=== PATIENT | female | born 1955 | race Caucasian/White ===

== ENCOUNTER → 2019-02-16 | Outpatient (CLI) | payer MEDICARE, OTHER ==
[~2019-02-16] MED LIST: CATHETER FLUSH 10 ML SYR IV PRN; GADOBUTROL 7.5 MMOL/7.5 ML (GADAVIST) VIAL IV ONE; HOLD METFORMIN - RECEIVED CONTRAST 20 ML VIAL IV SCH; IOHEXOL 350 MG/ML 100 ML (OMNIPAQUE 350) VIAL IV ONE; NS 100 ML (IVPB) BAG IV ONE
--- NOTE | 2019-02-16 12:17 | Diagnostic Imaging Report ---
PROCEDURE: CT chest with contrast only. TECHNIQUE: Multiple contiguous axial images were obtained through the chest after administration of intravenous contrast. Auto Exposure Controls were utilized during the CT exam to meet ALARA standards for radiation dose reduction. INDICATION: Breast cancer. FINDINGS: No comparison available. There are postsurgical changes of left mastectomy. No axillary, supraclavicular or mediastinal lymphadenopathy. Heart size is normal. No pericardial effusion. Aorta is normal in caliber. No central pulmonary embolism. Limited views of the upper abdomen reveal renal cysts and scarring in the right kidney. There is anterior fibrosis in the left lung likely related to prior chest wall radiation. There is mild atelectasis posteriorly in the right lung. There are multifocal ill-defined nodules involving the right upper lobe and middle lobe likely reflecting an infectious process. No edema. No pleural effusion. No suspicious osseous lesions. IMPRESSION: 1. Multifocal ill-defined nodules in the right upper and middle lobes likely reflecting an infectious process. Followup to resolution is recommended. Dictated by: Dictated on workstation # [id number]
--- NOTE | 2019-02-16 14:03 | Diagnostic Imaging Report ---
PROCEDURE: MR imaging of the brain with and without contrast. TECHNIQUE: Multiplanar, multisequence MR imaging of the brain was performed with and without contrast. INDICATION: History of breast cancer in 1986. Patient complaining of dizziness. COMPARISON: No prior studies are available for comparison. FINDINGS: Ventricles and sulci are within normal limits. There is some moderate periventricular and subcortical white matter signal abnormality noted consistent with chronic microvascular ischemia. No diffusion restriction is identified to suggest acute ischemia. Normal expected flow-voids within the carotid siphons are seen. No abnormal enhancement following contrast administration is identified. Corpus callosum is unremarkable. The sella and parasellar structures are unremarkable. Internal auditory canals are unremarkable. No CP angle mass is seen. There is no hemorrhage detected. IMPRESSION: Changes of chronic microvascular ischemia. No findings to suggest intracranial metastatic disease are detected. No acute feature is seen. Dictated by: Dictated on workstation # [id number]
== END ==
LOC: RAD 11:24
PROVIDERS: ATTEND Internal Medicine Hematology & Oncology
DX: I67.82 Cerebral ischemia (principal); C83.09 Small cell B-cell lymphoma, extranodal and solid organ sites; D50.9 Iron deficiency anemia, unspecified; D73.1 Hypersplenism; Z85.3 Personal history of malignant neoplasm of breast
CPT/HCPCS: 70553; 71260

== ENCOUNTER → 2019-05-10 | Outpatient (CLI) | payer MEDICARE, OTHER ==
[2019-05-10 09:45] LABS: BASOPHILS % (AUTO) 0 % (0-10); EOSINOPHILS % (AUTO) 0 % (0-10); HEMATOCRIT 43 % (35-52); HEMOGLOBIN 15.1 G/DL (11.5-16.0); LYMPHOCYTES # (AUTO) 1.1 X 10^3 (1.0-4.0); LYMPHOCYTES % (AUTO) 16 % (12-44); MEAN CORPUSCULAR HEMOGLOBIN 33 PG (25-34); MEAN CORPUSCULAR HGB CONC 36 G/DL (32-36); MEAN CORPUSCULAR VOLUME 93 FL (80-99); MONOCYTES # (AUTO) 0.4 X 10^3 (0.0-1.0); MONOCYTES % (AUTO) 6 % (0-12); NEUTROPHILS # (AUTO) 5.2 X 10^3 (1.8-7.8); NEUTROPHILS % (AUTO) 77 % (42-75); PLATELET COUNT 167 10^3/uL (130-400); RED CELL DISTRIBUTION WIDTH 15.2 % (10.0-14.5); WHITE BLOOD COUNT 6.7 10^3/uL (4.3-11.0)
[2019-05-10 10:14] LABS: ALANINE AMINOTRANSFERASE 24 U/L (0-55); ALBUMIN 4.6 GM/DL (3.2-4.5); ALKALINE PHOSPHATASE 168 U/L (40-136); BILIRUBIN,TOTAL 0.6 MG/DL (0.1-1.0); BUN/CREATININE RATIO 12; CALCIUM 9.8 MG/DL (8.5-10.1); CARBON DIOXIDE 23 MMOL/L (21-32); CHLORIDE 104 MMOL/L (98-107); CREATININE SERUM 0.76 MG/DL (0.60-1.30); GFR ESTIMATED > 60; GLUCOSE 103 MG/DL (70-105); POTASSIUM 4.2 MMOL/L (3.6-5.0); SODIUM 138 MMOL/L (135-145); TOTAL PROTEIN 7.1 GM/DL (6.4-8.2)
[2019-05-10 10:33] LABS: FREE T4 (FREE THYROXINE) 1.41 NG/DL (0.70-1.48)
--- NOTE | 2019-05-10 11:59 | Diagnostic Imaging Report ---
EXAMINATION: CT Chest with intravenous contrast. TECHNIQUE: Multiple contiguous axial images were obtained through the chest after the uneventful administration of intravenous contrast. All CT scans use one or more of the following dose optimizing techniques: automated exposure control, MA and/or KvP adjustment based on a patient size and exam type, or iterative reconstruction. INDICATION: SMALL CELL B CELL LYMPHOMA COMPARISON: 11/16/2018 FINDINGS: The lungs are clear without edema or pneumonia. No pleural effusion or pneumothorax. Previously seen ill-defined inflammatory nodules in the right upper and middle lobe have resolved. Some scarring is seen in the lung apices with some reticulations anteriorly as well. This is particularly seen on the left and is likely related to prior breast radiation. Mild atelectasis is seen in the right base. Heart size is normal. No pericardial effusion. Aorta is normal in caliber. There is no axillary or supraclavicular lymphadenopathy. There is no mediastinal lymphadenopathy. There is been cholecystectomy. Limited views of the upper abdomen are unremarkable. There are no suspicious osseus lesions. IMPRESSION: 1. Resolution of previously seen inflammatory appearing nodules in the upper middle lobe. Dictated by: Dictated on workstation # [id number]
== END ==
LOC: RAD FS 09:22
PROVIDERS: ATTEND Internal Medicine Hematology & Oncology
DX: C83.00 Small cell B-cell lymphoma, unspecified site (principal)
CPT/HCPCS: 36415; 71260; 80053; 82728; 83540; 83615; 84439; 85025; 86141

== ENCOUNTER → 2022-11-06 | Outpatient (CLI) | payer MEDICARE, OTHER ==
[~2022-11-06] MED LIST changes: -CATHETER FLUSH 10 ML SYR IV PRN; +CATHETER FLUSH 10 ML SYR IVP PRN; -GADOBUTROL 7.5 MMOL/7.5 ML (GADAVIST) VIAL IV ONE; -HOLD METFORMIN - RECEIVED CONTRAST 20 ML VIAL IV SCH; -IOHEXOL 350 MG/ML 100 ML (OMNIPAQUE 350) VIAL IV ONE; -NS 100 ML (IVPB) BAG IV ONE
--- NOTE | 2022-11-07 09:06 | Diagnostic Imaging Report ---
INDICATION: Lymphoma, subsequent staging. Serum blood glucose level time injection is 131 mg/dL. Patient was administered 9.3 mCi F-18 FDG intravenously in the right hand and PET imaging was performed from the top of skull to mid thighs. Noncontrast CT was also performed for attenuation correction and anatomic correlation. No prior PET studies are available for comparison. Comparison is made with prior CT study from 06/17/2022. There is symmetric activity throughout the brain. Extensive hypermetabolic lymphadenopathy is identified. There is a hypermetabolic lymphadenopathy within the neck, particularly on the left side as well as bilateral supraclavicular regions and the right axilla. SUV max of left supraclavicular regions approximately 20. The bulky hypermetabolic mass in the anterior mediastinum consistent with adenopathy is noted. There is also subcarinal hypermetabolic lymphadenopathy. There are several pulmonary parenchymal areas of hypermetabolism in the left upper lobe and the left lower lobe. There is upper abdominal lymphadenopathy in the gastrohepatic region. Spleen contains numerous foci of hypermetabolism. There is also bilateral adrenal masses which are hypermetabolic. Right adrenal mass demonstrates SUV max of 21. [place] hepatis and retroperitoneal hypermetabolic lymphadenopathy is seen. There is some hypermetabolic lymphadenopathy along the common iliac chain bilaterally. Small right pleural effusion is noted. IMPRESSION: Extensive hypermetabolic lymphadenopathy within the neck, chest, abdomen and pelvis, as described. Dictated by: Dictated on workstation # [id number]
== END ==
LOC: RAD 11:37
PROVIDERS: ATTEND Internal Medicine Hematology & Oncology
DX: C83.09 Small cell B-cell lymphoma, extranodal and solid organ sites (principal); R59.1 Generalized enlarged lymph nodes
CPT/HCPCS: 78815; 82947; A9552

== ENCOUNTER → 2023-02-05 | Outpatient (CLI) | payer MEDICARE, OTHER ==
--- NOTE | 2023-02-06 12:58 | Diagnostic Imaging Report ---
INDICATION: Subsequent staging lymphoma. TECHNIQUE: PET/CT imaging was obtained from the base of the skull through the pelvis after the administration of mCi of F-[address] imaging was utilized for localization and attenuation correction purposes. The low energy CT utilized for attenuation correction is not considered to be of high enough spatial resolution to allow in and of itself a separate anatomical analysis. Serum blood glucose level was 83 mg/dL. Correlation is made with prior PET/CT study from 11/06/2022. There is symmetric activity throughout the brain. Previously noted hypermetabolic activity within the neck has resolved. There continue to be some hypermetabolic lymph nodes in the right axilla with an SUV max of 27. There is a hypermetabolic mass in the left upper lobe with an SUV max of 30. Left hilar hypermetabolic nodes are present as well. There is some mild residual uptake involving gastrohepatic lymph nodes and kirti hepatis lymph nodes as well as central retroperitoneal lymph nodes however this is significantly improved. Adrenal glands are no longer hypermetabolic. Right iliac chain hypermetabolic nodes are present but again markedly improved. There does appear to be some generalized uptake within the marrow of the axial and appendicular skeleton. There is a small left effusion noted. IMPRESSION: Overall significant improvement in the hypermetabolic lymphadenopathy in the neck, chest, abdomen and pelvis. There are some residual hypermetabolic nodes, as described. There is hypermetabolic mass in the left upper lobe. Continued follow-up is recommended. Dictated by: Dictated on workstation # [id number]
== END ==
LOC: RAD 09:15
PROVIDERS: ATTEND Internal Medicine Hematology & Oncology
DX: C83.38 Diffuse large B-cell lymphoma, lymph nodes of multiple sites (principal); R91.8 Other nonspecific abnormal finding of lung field
CPT/HCPCS: 78815; 82947; A9552

== ENCOUNTER → 2023-04-30 | Outpatient (CLI) | payer MEDICARE ==
--- NOTE | 2023-04-30 16:23 | Diagnostic Imaging Report ---
INDICATION: Subsequent staging lymphoma. TECHNIQUE: Serum blood glucose level at the time of injection is 94 mg/dL. The patient was administered 9.6 mCi F-18 FDG intravenously in the right wrist and PET imaging was performed from the top of the skull to mid thighs. Noncontrast CT was also performed for attenuation correction and anatomic correlation. CORRELATION is made with prior PET/CT study from 02/05/2023. There is symmetric activity throughout the brain. There is a small focus of uptake in the right mandible which is indeterminate. Hypermetabolic lymphadenopathy in the right axilla persists with an SUV max of approximately 30. This compares with 27.3 on prior. The left axilla is unremarkable. There are now hypermetabolic lymph nodes in the right paratracheal location, new since prior exam. A lymph node in the high right paratracheal location has an SUV max of 19.7. A lower right paratracheal lymph node demonstrates an SUV max of 16.5. There is now a jessica mass in the left paratracheal location just above the [place] with an SUV max of 29.6. Soft tissue mass in the medial left upper lobe has increased in size and has an SUV max of 29. Several nodular hypermetabolic foci within the left lung, along the pleural margin. These could be pleural-based although there also appears to be several parenchymal hypermetabolic foci as well in the lingula and the left lower lobe. There is a hypermetabolic nodule in the right upper lobe, as well. There is a small left pleural effusion. There is a soft tissue hypermetabolic mass in the left paraspinal location from approximately the T9-T11 levels. [place] hepatis and gastrohepatic hypermetabolic lymphadenopathy has increased since the prior exam. Gastrohepatic mass demonstrates an SUV max of 25. There is hypermetabolic lymphadenopathy adjacent to the greater curvature of the stomach, as well. There are hypermetabolic nodes in the central retroperitoneum as well as near the aortic bifurcation which has increased since the prior. Hypermetabolic lymph nodes along the right iliac and left iliac chain are noted as well which appear increased. Inguinal regions are unremarkable. IMPRESSION: Significant worsening appearance since the prior exam from 02/05/2023. There are numerous new hypermetabolic foci within the chest, abdomen and pelvis. There is a moderate left pleural effusion. Dictated by: Dictated on workstation # [id number]
== END ==
LOC: RAD 09:33
PROVIDERS: ATTEND Internal Medicine Hematology & Oncology
DX: C83.38 Diffuse large B-cell lymphoma, lymph nodes of multiple sites (principal); J90 Pleural effusion, not elsewhere classified
CPT/HCPCS: 78815; 82947; A9552